=== PATIENT | male | born 1950 | race African-American/Black ===

== ENCOUNTER 2016-06-07 16:45 | Emergency (ER) | payer MEDICARE ==
[~2016-06-07] VITALS: Ht 180.3 cm; Wt 99.8 kg
[2016-06-07] MEDS ORDERED: ASPIRIN 81 MG TAB.CHEW PO ONE (17:15)
[2016-06-07 17:22] LABS: BASO # 0.1 x10^3/uL (0.0-0.2); BASO % 2 % (0-3); EOS % 3 % (0-3); HEMATOCRIT 43.4 % (39.0-53.0); HEMOGLOBIN 14.9 g/dL (13.0-17.5); LYMPH # 1.8 x10^3/uL (1.0-4.8); LYMPH % 41 % (24-48); MEAN CORPUSCULAR HEMOGLOBIN 30 pg (25-35); MEAN CORPUSCULAR HGB CONC 34 g/dL (31-37); MEAN CORPUSCULAR VOLUME 86 fL (79-100); MONO % 10 % (0-9); NEUT % 44 % (31-73); PLATELET COUNT 263 x10^3/uL (140-400); RED BLOOD COUNT 5.07 x10^6/uL (4.30-5.70); RED CELL DISTRIBUTION WIDTH 14.5 % (11.5-14.5); WHITE BLOOD COUNT 4.4 x10^3/uL (4.0-11.0)
[2016-06-07 17:31] LABS: INR 0.9 (0.8-1.1); PROTHROMBIN TIME PATIENT 11.8 SEC (11.7-14.0)
[2016-06-07 17:42] LABS: CALCIUM 9.1 mg/dL (8.5-10.1); CREATININE 1.2 mg/dL (0.7-1.3); GFR 60.6; POTASSIUM 4.2 mmol/L (3.5-5.1)
[2016-06-07 17:47] LABS: DIRECT BILIRUBIN 0.1 mg/dL (0.0-0.2); MAGNESIUM 2.1 mg/dL (1.8-2.4); TOTAL BILIRUBIN 0.8 mg/dL (0.2-1.0); TOTAL PROTEIN 8.2 g/dL (6.4-8.2)
[2016-06-07 18:06] LABS: CKMB INDEX 0.6 % (0-4); CKMB MASS 1.2 ng/mL (0.0-3.6)
[2016-06-07 18:23] VITALS: BP 144/77
--- NOTE | 2016-06-07 18:48 | PHYS DOC ---
Past Medical History Past Medical History: High Cholesterol, Hypertension Past Surgical History: No Surgical History Alcohol Use: Occasionally Drug Use: None Adult General Chief Complaint Chief Complaint: chest pain HPI HPI Patient is a 66 year old male who presents to the ED with a complaint of pain in the chest earlier today and in fact has had similar pain off and on for several weeks. For some reason, the pain today made him a little nervous, he didn't like it, and decided to come in. He states yesterday when he was walking he had a dizzy episode but no chest pain at that time. Today he had had just some coffee this morning, he had gone to the [employer] and was seated and getting ready to eat when he developed some pain in the middle of his chest, he felt a little bit hot but did not have a sweat, no nausea or shortness of air. The pain has now resolved and is gone. When he had the pain it was significant pain but he can't really put a number on it. He has had some chest pain off and on lately and in fact has called to make a doctor's appointment for evaluation. He has not had cardiac evaluation in the past. No cardiac history. Never had an WI. He does not take aspirin. He was once told that he had "prediabetes" anyone on a crash diet and got better. PCP Dr. Aj Juarez Review of Systems Review of Systems Constitutional: Denies fever or chills [] Eyes: Denies change in visual acuity, redness, or eye pain [] HENT: Denies nasal congestion or sore throat [] Respiratory: Denies cough or shortness of breath [] Cardiovascular: As in history of present illness GI: Denies abdominal pain, nausea, vomiting, bloody stools or diarrhea [] : Denies dysuria or hematuria [] Musculoskeletal: Denies back pain or joint pain [] Integument: Denies rash or skin lesions [] Neurologic: Denies headache, focal weakness or sensory changes [] Current Medications Current Medications Current Medications Medications (Trade) Dose Ordered Sig/Jailyn Start Time Stop Time Status Last Admin Dose Admin Aspirin (Children'S Aspirin) 324 mg 1X ONCE 06/07/16 17:15 06/07/16 17:18 DC 06/07/16 17:25 324 MG Allergies Allergies Allergies Coded Allergies Type Severity Reaction Last Updated Verified No Known Drug Allergies 06/07/16 No Physical Exam Physical Exam Constitutional: Well developed, well nourished, no acute distress, non-toxic appearance. Alert, mentating normally. HENT: Normocephalic, atraumatic, bilateral external ears normal, nose normal. [] Eyes: conjunctiva normal, no discharge. [] Neck: Normal range of motion, no stridor. [] Cardiovascular:Heart rate regular rhythm, no murmur [] Lungs & Thorax: Bilateral breath sounds clear to auscultation [] Abdomen: Bowel sounds normal, soft, no tenderness, no masses, no pulsatile masses. [] Skin: Warm, dry, no erythema, no rash. [] Extremities: No tenderness, no cyanosis, no clubbing, ROM intact, no edema. [] Neurologic: Alert and oriented X 3, normal motor function, normal sensory function, no focal deficits noted. [] Current Patient Data Vital Signs Vital Signs Date Time Temp Pulse Resp B/P Pulse Ox O2 Delivery O2 Flow Rate FiO2 06/07/16 18:23 64 15 144/77 97 Room Air 06/07/16 16:48 97.8 97.8 Lab Values Laboratory Tests Test 06/07/16 17:00 White Blood Count 4.4x10^3/uL (4.0-11.0) Red Blood Count 5.07x10^6/uL (4.30-5.70) Hemoglobin 14.9g/dL (13.0-17.5) Hematocrit 43.4% (39.0-53.0) Mean Corpuscular Volume 86fL (79-100) Mean Corpuscular Hemoglobin 30pg (25-35) Mean Corpuscular Hemoglobin Concent 34g/dL (31-37) Red Cell Distribution Width 14.5% (11.5-14.5) Platelet Count 263x10^3/uL (140-400) Neutrophils (%) (Auto) 44% (31-73) Lymphocytes (%) (Auto) 41% (24-48) Monocytes (%) (Auto) 10% (0-9) H Eosinophils (%) (Auto) 3% (0-3) Basophils (%) (Auto) 2% (0-3) Neutrophils # (Auto) 2.0x10^3uL (1.8-7.7) Lymphocytes # (Auto) 1.8x10^3/uL (1.0-4.8) Monocytes # (Auto) 0.4x10^3/uL (0.0-1.1) Eosinophils # (Auto) 0.1x10^3/uL (0.0-0.7) Basophils # (Auto) 0.1x10^3/uL (0.0-0.2) Prothrombin Time 11.8SEC (11.7-14.0) Prothrombin Time INR 0.9 (0.8-1.1) Sodium Level 141mmol/L (136-145) Potassium Level 4.2mmol/L (3.5-5.1) Chloride Level 104mmol/L (98-107) Carbon Dioxide Level 26mmol/L (21-32) Anion Gap 11 (6-14) Blood Urea Nitrogen 21mg/dL (8-26) Creatinine 1.2mg/dL (0.7-1.3) Estimated GFR (Cockcroft-Gault) 60.6 Glucose Level 99mg/dL (70-99) Calcium Level 9.1mg/dL (8.5-10.1) Magnesium Level 2.1mg/dL (1.8-2.4) Total Bilirubin 0.8mg/dL (0.2-1.0) Direct Bilirubin 0.1mg/dL (0.0-0.2) Aspartate Amino Transferase (AST) 22U/L (15-37) Alanine Aminotransferase (ALT) 36U/L (16-63) Alkaline Phosphatase 83U/L (46-116) Creatine Kinase 207U/L (39-308) Creatine Kinase MB (Mass) 1.2ng/mL (0.0-3.6) Creatine Kinase MB Relative Index 0.6% (0-4) Troponin I Quantitative < 0.017ng/mL (0.000-0.055) LX-Emq-[id number]-Type Natriuretic Peptide 8pg/mL (0-124) Total Protein 8.2g/dL (6.4-8.2) Albumin 4.0g/dL (3.4-5.0) Laboratory Tests 06/07/16 17:00 Laboratory Tests 06/07/16 17:00 EKG EKG 12-lead EKG read by me. Sinus rhythm. Heart rate 61. There are no acute ST or T wave changes indicative of ischemia or infarction. No STEMI. 1701 [] Radiology/Procedures Radiology/Procedures One view portable chest x-ray read by me. No acute cardiopulmonary abnormality. [] Course & Med Decision Making Course & Med Decision Making Pertinent Labs and Imaging studies reviewed. (See chart for details) 66-year-old male presents after an episode of chest pain. I advised the patient that we will give him a dose of aspirin, get some labs, EKG, chest x-ray. He is agreeable to that plan. Patient was stable in the emergency department without further chest pain. Labs , EKG, chest x-ray unremarkable for acute findings. I discussed with the patient that I would like to admit him to the hospital for rule out, serial troponins, observation, cardiology consultation, further cardiac testing. The patient declined to be admitted. He states that he will follow-up with his primary care doctor and does plan to get some further cardiac evaluation. I did explain to the patient the reason for admission, rule out, and in case he does develop further chest pain he would be in the hospital if he were to have a heart attack, explained to him that the pain could be a warning sign, he understands all of that and declines to be admitted at this time. I cautioned the patient that if he develops any more pain or has second thoughts about leaving, to return to the ED at any time for admission or reevaluation, he is agreeable to that. [] Dragon Disclaimer Dragon Disclaimer This electronic medical record was generated, in whole or in part, using a voice recognition dictation system. Departure Departure Impression: Primary Impression: Chest pain Disposition: 01 HOME, SELF-CARE Condition: STABLE Referrals: AJ JUAREZ (PCP) Patient Instructions: Chest Pain (Nonspecific)-Brief Additional Instructions: As we discussed, I am concerned that your chest pain could possibly be coming from your heart, and it might be a warning sign that we need to take seriously. I offered to admit you to the hospital to see a tattooer and have more testing, but you declined at this time. If you change your mind, if your symptoms worsen or if you decide to be admitted, please return to the ED and we will admit you. Call your doctor in the morning and tell them that you were seen in the ED for chest pain, we advised you to be admitted but you declined, and you need to have an appointment to have further testing as soon as possible. Until you are otherwise advised by a tattooer, take aspirin 1 full strength aspirin daily. You did have a dose here in the emergency department so your next dose will be due Wednesday. This helps make sure platelets more slippery and decreases the risk of tiny blood clots that can cause a heart attack. FRANNY MEDEL MD Jun 07, 2016 18:47
--- NOTE | 2016-06-08 06:08 | EKG ---
[facility] [address] [place] [address] Test Date: 2016-06-07 Test Time: 17:01:00 Pat Name: DANIEL ACUÑA Department: Room: Gender: M Client Services Vice President: : 1950 Requested By: FRANNY MEDEL Order Number: [id number] Reading MD: Measurements Intervals [place] Rate: 61 P: 26 DE: 152 QRS: -17 QRSD: 82 T: 25 QT: 380 QTc: 384 Interpretive Statements SINUS RHYTHM LEFTWARD AXIS RI6.01 Unconfirmed report No previous ECG available for comparison
--- NOTE | 2016-06-08 08:20 | RAD ---
Portable chest, 06/07/2016: History: Chest pain The heart size and pulmonary vascularity are normal. There is mild tortuosity of the thoracic aorta. No pulmonary infiltrates are seen. There is no evidence of pleural fluid. IMPRESSION: No acute cardiopulmonary abnormality is detected.
== END 2016-06-07 18:59 | disposition home or self-care (01) ==
LOC: ER 16:45
DX: R07.9 Chest pain, unspecified (principal); R42 Dizziness and giddiness; E78.00 Pure hypercholesterolemia, unspecified; I10 Essential (primary) hypertension
CPT/HCPCS: 36415; 71010; 80048; 80076; 82553; 83735; 83880; 84484; 85027; 85610; 93005; 99285-25

== ENCOUNTER 2018-05-20 19:28 | Emergency (ER) | payer BC, OTHER ==
[~2018-05-20] VITALS: Ht 180.3 cm; Wt 96.2 kg
[2018-05-20 19:45] VITALS: BP 155/95
[2018-05-20] MEDS ORDERED: IV NORMAL SALINE 1000ML BAG 1,000 ML IV ONE (20:00)
[2018-05-20 20:06] LABS: BASO # 0.1 x10^3/uL (0.0-0.2); BASO % 1 % (0-3); EOS # 0.1 x10^3/uL (0.0-0.7); EOS % 1 % (0-3); HEMATOCRIT 40.1 % (39.0-53.0); HEMOGLOBIN 13.3 g/dL (13.0-17.5); LYMPH # 1.9 x10^3/uL (1.0-4.8); LYMPH % 32 % (24-48); MEAN CORPUSCULAR HEMOGLOBIN 29 pg (25-35); MEAN CORPUSCULAR HGB CONC 33 g/dL (31-37); MEAN CORPUSCULAR VOLUME 87 fL (79-100); MONO # 0.4 x10^3/uL (0.0-1.1); MONO % 7 % (0-9); NEUT # 3.4 x10^3uL (1.8-7.7); NEUT % 58 % (31-73); PLATELET COUNT 275 x10^3/uL (140-400); RED BLOOD COUNT 4.63 x10^6/uL (4.30-5.70); RED CELL DISTRIBUTION WIDTH 14.7 % (11.5-14.5); WHITE BLOOD COUNT 5.9 x10^3/uL (4.0-11.0)
[2018-05-20 20:15] LABS: PROTHROMBIN TIME PATIENT 11.8 SEC (11.7-14.0)
[2018-05-20 20:19] LABS: CALCIUM 9.1 mg/dL (8.5-10.1); CREATININE 1.1 mg/dL (0.7-1.3); GFR 80.5; POTASSIUM 3.5 mmol/L (3.5-5.1)
[2018-05-20 20:23] LABS: ALBUMIN 3.8 g/dL (3.4-5.0); ALBUMIN/GLOBULIN RATIO 0.9 (1.0-1.7); MAGNESIUM 2.1 mg/dL (1.8-2.4); TOTAL BILIRUBIN 0.4 mg/dL (0.2-1.0); TOTAL PROTEIN 7.9 g/dL (6.4-8.2)
[2018-05-20] MEDS ORDERED: ASPIRIN 325 MG TABLET PO ONE (20:30)
--- NOTE | 2018-05-20 20:49 | PHYS DOC ---
Past Medical History Past Medical History: High Cholesterol, Hypertension Past Surgical History: No Surgical History Smoking: Quit Greater Than 1 Year Alcohol Use: Occasionally Drug Use: None Adult General Chief Complaint Chief Complaint: UPPER EXTREMITY PAIN HPI HPI Patient is a 68 year old male with PMH of HTN and elevated cholesterol presents to the ED with 1 week of left, upper arm pain/tingling that became suddenly worse today while driving back from [facility]. He denies any injury/ trauma to the area. The pain radiates down towards his hand intermittently. He took an aspirin that he feels made the pain better and is currently painless. He said the pain was a 7/10 at it's worst. He had a stress test and MRI through cardiology about 2 weeks and was told he had heart disease. He denies any chest pain, SOB, dizziness, jaw pain, nausea, vomiting, fever or chills. Review of Systems Review of Systems Constitutional: Denies fever or chills [] Eyes: Denies change in visual acuity, redness, or eye pain [] HENT: Denies nasal congestion or sore throat [] Respiratory: Denies cough or shortness of breath [] Cardiovascular: Denies any chest pain or palpitations. GI: Denies abdominal pain, nausea, vomiting, or diarrhea [] : Denies dysuria or hematuria [] Musculoskeletal: left arm pain Integument: Denies rash or skin lesions [] Neurologic: Denies headache, focal weakness or sensory changes [] Complete systems were reviewed and found to be within normal limits, except as documented in this note. Current Medications Current Medications Current Medications Medications (Trade) Dose Ordered Sig/[facility] Start Time Stop Time Status Last Admin Dose Admin Aspirin (Wendi Aspirin) 325 mg 1X ONCE 05/20/18 20:30 05/20/18 20:31 DC Sodium Chloride 1,000 ml @ 1,000 mls/hr 1X ONCE 05/20/18 20:00 05/20/18 20:59 DC 05/20/18 20:07 1,000 MLS/HR Allergies Allergies Allergies Coded Allergies Type Severity Reaction Last Updated Verified No Known Drug Allergies 06/07/16 No Physical Exam Physical Exam Constitutional: Well developed, well nourished, no acute distress, non-toxic appearance. [] HENT: Normocephalic, atraumatic, bilateral external ears normal, oropharynx moist, no oral exudates, nose normal. [] Eyes: Scleral Icterus b/l, no discharge. [] Neck: Normal range of motion, no tenderness, supple, no stridor. [] Cardiovascular: Heart rate regular rhythm, no murmur [] Lungs & Thorax: Bilateral breath sounds clear to auscultation [] Abdomen: soft, no tenderness, no masses. [] Skin: Vitiligo of hands and perioral area. warm, dry. [] Extremities: Mild TTP of Left AC joint, decreased ROM in LUE, no cyanosis, no clubbing. [] Neurologic: Alert and oriented X 3, normal motor function, normal sensory function, no focal deficits noted. [] Psychologic: Affect normal, judgement normal, mood normal. [] Current Patient Data Vital Signs Vital Signs Date Time Temp Pulse Resp B/P (MAP) Pulse Ox O2 Delivery O2 Flow Rate FiO2 05/20/18 19:45 97.7 72 18 155/95 (115) 99 Room Air 97.7 Lab Values Laboratory Tests Test 05/20/18 19:40 White Blood Count 5.9 x10^3/uL (4.0-11.0) Red Blood Count 4.63 x10^6/uL (4.30-5.70) Hemoglobin 13.3 g/dL (13.0-17.5) Hematocrit 40.1 % (39.0-53.0) Mean Corpuscular Volume 87 fL (79-100) Mean Corpuscular Hemoglobin 29 pg (25-35) Mean Corpuscular Hemoglobin Concent 33 g/dL (31-37) Red Cell Distribution Width 14.7 % (11.5-14.5) H Platelet Count 275 x10^3/uL (140-400) Neutrophils (%) (Auto) 58 % (31-73) Lymphocytes (%) (Auto) 32 % (24-48) Monocytes (%) (Auto) 7 % (0-9) Eosinophils (%) (Auto) 1 % (0-3) Basophils (%) (Auto) 1 % (0-3) Neutrophils # (Auto) 3.4 x10^3uL (1.8-7.7) Lymphocytes # (Auto) 1.9 x10^3/uL (1.0-4.8) Monocytes # (Auto) 0.4 x10^3/uL (0.0-1.1) Eosinophils # (Auto) 0.1 x10^3/uL (0.0-0.7) Basophils # (Auto) 0.1 x10^3/uL (0.0-0.2) Prothrombin Time 11.8 SEC (11.7-14.0) Prothrombin Time INR 0.9 (0.8-1.1) Sodium Level 141 mmol/L (136-145) Potassium Level 3.5 mmol/L (3.5-5.1) Chloride Level 104 mmol/L (98-107) Carbon Dioxide Level 26 mmol/L (21-32) Anion Gap 11 (6-14) Blood Urea Nitrogen 18 mg/dL (8-26) Creatinine 1.1 mg/dL (0.7-1.3) Estimated GFR (Cockcroft-Gault) 80.5 BUN/Creatinine Ratio 16 (6-20) Glucose Level 99 mg/dL (70-99) Calcium Level 9.1 mg/dL (8.5-10.1) Magnesium Level 2.1 mg/dL (1.8-2.4) Total Bilirubin 0.4 mg/dL (0.2-1.0) Aspartate Amino Transferase (AST) 20 U/L (15-37) Alanine Aminotransferase (ALT) 29 U/L (16-63) Alkaline Phosphatase 96 U/L (46-116) Creatine Kinase 201 U/L (39-308) Creatine Kinase MB (Mass) 1.2 ng/mL (0.0-3.6) Creatine Kinase MB Relative Index 0.6 % (0-4) Troponin I Quantitative < 0.017 ng/mL (0.000-0.055) AK-Ivz-H-Type Natriuretic Peptide 19 pg/mL (0-124) Total Protein 7.9 g/dL (6.4-8.2) Albumin 3.8 g/dL (3.4-5.0) Albumin/Globulin Ratio 0.9 (1.0-1.7) L Lipase 74 U/L (73-393) Laboratory Tests 05/20/18 19:40 Laboratory Tests 05/20/18 19:40 EKG EKG @19:38 NSR at 74bpm, NO ST elevation, some baseline artifact noted Radiology/Procedures Radiology/Procedures [] Course & Med Decision Making Course & Med Decision Making Pertinent Lab studies reviewed. (See chart for details) Patient with significant cardiac risk factors presents with left upper arm pain. Denies chest pain. Reports known "heart disease" based on stress test and MRI per [facility]. Patient reports pain resolved after taking ASA prior to arrival. EKG stable. Labs obtained and posted to chart. Initial troponin WNL. HEART score 4. Patient offered admission for further evaluation and treatment. Patient declining admission. Requests to leave AMA. Patient advised of risks of leaving AMA including permanent disability and/or . Patient acknowledges understanding and agreement. Dragon Disclaimer Dragon Disclaimer This electronic medical record was generated, in whole or in part, using a voice recognition dictation system. Departure Departure Impression: Primary Impression: Atypical chest pain Additional Impression: Left upper arm pain Disposition: 07 AGAINST MEDICAL ADVICE Condition: GUARDED Referrals: AJ ARRIAGA MD (PCP) CAYETANO THORNE MD Patient Instructions: Chest Pain (Nonspecific), [id number], Discharge Against Medical Advice Problem Qualifiers MELISSA FRAZIER DO May 20, 2018 20:49
--- NOTE | 2018-05-21 10:49 | EKG ---
[facility] [address] [place] [address] Test Date: 2018-05-20 Test Time: 19:38:34 Pat Name: DANIEL ACUÑA Department: Room: Gender: M Traffic Agent: : 1950 Requested By: MELISSA FRAZIER Order Number: [id number] Reading MD: Jose Luis Caldera MD Measurements Intervals [place] Rate: 74 P: [place]: QRS: -17 QRSD: 72 T: 21 QT: 344 QTc: 387 Interpretive Statements SR Electronically Signed On 05-24-2018 10:14:47 FIRE WATCH[employer] by Jose Luis Caldera MD
== END 2018-05-20 21:14 | disposition left against medical advice (07) ==
LOC: ER 19:28
DX: M79.622 Pain in left upper arm (principal); R07.89 Other chest pain; L80 Vitiligo; E78.00 Pure hypercholesterolemia, unspecified; I10 Essential (primary) hypertension; Z87.891 Personal history of nicotine dependence
CPT/HCPCS: 36415; 80053; 82553; 83690; 83735; 83880; 84484; 85025; 85610; 93005; 99284; J7030